=== PATIENT | female | born 1965 | race Caucasian/White ===

== ENCOUNTER 2017-02-13 21:09 | Inpatient (IN) | payer BC ==
[~2017-02-13] VITALS: Ht 167.6 cm; Wt 129.5 kg
[~2017-02-13 21:09] MED LIST: IRON325 M1 PO; THRIVE PO; VIVLODEX10 MG PO
[2017-02-14 16:30] VITALS: BP 139/64
[2017-02-14 20:00] VITALS: BP 135/81
[2017-02-15 00:09] VITALS: BP 134/70
[2017-02-15 03:40] VITALS: BP 148/74
[2017-02-15 07:43] VITALS: BP 119/64
[2017-02-15 08:37] LABS: HEMATOCRIT 37.5 % (36.0-46.0); MCV 93.1 FL (83-99)
[2017-02-15 09:01] LABS: ANION GAP 8 MEQ/L (2-14); CHLORIDE 104 MEQ/L (99-109); GFR ESTIMATE (CALCULATED) > 59 mL/min/; GLUCOSE 155 mg/dL (70-99); POTASSIUM 5.2 MEQ/L (3.7-5.4); SAMPLE HEMOLYSIS CHECK 2; SAMPLE ICTERIC CHECK 0; SAMPLE LIPEMIA CHECK 0; SODIUM 137 MEQ/L (136-147); UREA NITROGEN (BUN) 15 mg/dL (9-23)
[2017-02-15] MEDS ORDERED: ELIQUIS2.5 MG PO (09:20)
[2017-02-15] MEDS ORDERED: OXYCODONE HCL5 MG PO (09:20)
[2017-02-15] MEDS ORDERED: OXYCONTIN10 MG PO (09:20)
[2017-02-15 11:34] VITALS: BP 117/61
[2017-02-15 15:33] VITALS: BP 136/67
[2017-02-15 19:45] VITALS: BP 137/63
[2017-02-16 00:02] VITALS: BP 141/64
[2017-02-16 04:09] VITALS: BP 120/56
[2017-02-16 05:49] LABS: HEMATOCRIT 35.6 % (36.0-46.0); MCV 94.4 FL (83-99)
[2017-02-16 08:00] VITALS: BP 126/60
[2017-02-16 11:44] VITALS: BP 159/78
== END 2017-02-16 15:16 | DRG 470 ==
LOC: ENRESERV 21:09 → 2SOUTH 02-14 06:49 → 3WEST 02-14 06:49 → ENRESERV 02-14 11:54 → 2SOUTH 02-14 13:11 → 3WEST 02-14 16:13
PROVIDERS: Orthopaedic Surgery
PROC: 0SRC0J9 Replacement of Right Knee Joint with Synthetic Substitute, Cemented, Open Approach (ICD-10-PCS; principal; 2017-02-14)
DX: M17.11 Unilateral primary osteoarthritis, right knee (principal); Z68.42 Body mass index [BMI] 45.0-49.9, adult; E66.01 Morbid (severe) obesity due to excess calories; Z96.652 Presence of left artificial knee joint
CPT/HCPCS: 36415; 80048; 85014; 85018; 86850; 86900; 86901; 93971; C1713; J0131; J0690; J1100; J1885; J2250; J2405; J2795; J7050

== ENCOUNTER 2017-07-13 12:04 | Emergency (ER) | payer OTHER, BC ==
[~2017-07-13] VITALS: Ht 167.6 cm; Wt 123.2 kg
[~2017-07-13 12:04] MED LIST changes: +ELIQUIS2.5 MG PO; +OXYCODONE HCL5 MG PO; +OXYCONTIN10 MG PO
[2017-07-13 12:13] VITALS: BP 156/82
== END 2017-07-13 15:07 | disposition home or self-care (01) ==
LOC: EME 12:04
DX: S80.01XA Contusion of right knee, initial encounter (principal); S80.02XA Contusion of left knee, initial encounter; V49.50XA Passenger injured in collision with unspecified motor vehicles in traffic accident, initial encounter; Y92.410 Unspecified street and highway as the place of occurrence of the external cause; Z96.653 Presence of artificial knee joint, bilateral; E78.5 Hyperlipidemia, unspecified
CPT/HCPCS: 73564; 99281; 99283